=== PATIENT | female | born 1945 | race Caucasian/White ===

== ENCOUNTER 2016-12-21 09:35 | Outpatient (CLI) | payer MEDICARE, OTHER | END 2016-12-21 09:36 | disposition home or self-care (01) | DX: E78.5 Hyperlipidemia, unspecified (principal) ==

== ENCOUNTER 2017-03-11 06:40 | Outpatient (CLI) | payer MEDICARE, OTHER | END 2017-03-11 06:41 | disposition home or self-care (01) | DX: L97.909 Non-pressure chronic ulcer of unspecified part of unspecified lower leg with unspecified severity (principal) ==

== ENCOUNTER 2017-05-20 11:08 | Outpatient (CLI) | payer MEDICARE, OTHER ==
[2017-05-20 19:17] LABS: BILIRUBIN,URINE NEGATIVE (NEGATIVE)
[2017-05-20 19:48] LABS: UR CULTURE IF IND NOT INDICATED; WBC,URINE 0-3 /HPF (0-5)
== END 2017-05-20 23:59 | disposition home or self-care (01) ==
LOC: LAB.WCP 11:08
PROVIDERS: ATTEND Family Medicine
DX: R39.15 Urgency of urination (principal)
CPT/HCPCS: 81001; 87086

== ENCOUNTER 2017-06-18 14:28 | Outpatient (CLI) | payer MEDICARE, OTHER | END 2017-06-18 14:29 | disposition home or self-care (01) | LOC: LAB.R 14:28 | PROVIDERS: ATTEND Physician Assistant Medical | DX: N39.0 Urinary tract infection, site not specified (principal) | CPT/HCPCS: 87077; 87086 ==

== ENCOUNTER 2017-07-02 16:00 | Outpatient (CLI) | payer MEDICARE, OTHER ==
[2017-07-02 19:22] LABS: BILIRUBIN,URINE NEGATIVE (NEGATIVE)
[2017-07-02 19:49] LABS: WBC,URINE 0-3 /HPF (0-5)
== END 2017-07-02 16:01 | disposition home or self-care (01) ==
LOC: LAB.R 16:00
PROVIDERS: ATTEND Family Medicine
DX: N39.0 Urinary tract infection, site not specified (principal)
CPT/HCPCS: 81001; 87086

== ENCOUNTER 2017-07-24 13:22 | Outpatient (CLI) | payer MEDICARE, OTHER ==
--- NOTE | 2017-07-24 16:43 | Ultrasound Report ---
RIGHT BREAST ULTRASOUND: 07/24/2017 CLINICAL INDICATION: Palpable abnormality on clinical examination. TECHNIQUE: Real-time scanning was performed with sales representative raw fibers static images obtained. FINDINGS: Ultrasound of the right lower outer quadrant was performed, directed to the region indicat ed on the requisition. Unremarkable parenchymal lobules are seen. No discrete solid or cystic mass is identified. No sonogra phically suspicious findings are appreciated. IMPRESSION: NEGATIVE EXAMINATION. RECOMMENDATION: ROUTINE ANNUAL SCREENING UNLESS OTHERWISE CLINICALLY INDICATED. BIRADS CATEGORY 1-NEGATIVE. JOB #: [id number] EXT JOB #:[id number]
--- NOTE | 2017-07-24 16:48 | Mammography Report ---
DIGITAL DIAGNOSTIC BILATERAL MAMMOGRAM: 07/24/2017 CLINICAL INDICATION: Palpable abnormality right lower inner quadrant on clinical examination, history of benign biopsies, family history of breast cancer. TECHNIQUE: Bilateral CC and MLO views, right true lateral view. Bilateral laterally exaggerated crani ocaudal views. COMPARISON: 11/23/2015, 10/22/2014, 09/14/2013, 03/24/2012, 03/05/2011, 09/25/2010, 02/08/2010, 02/01. FINDINGS: The breasts again demonstrate heterogeneously dense fibroglandular parenchyma bilaterally. Postoperative and postbiopsy changes are stable. Coarse and punctate, typically benign calcification s are present. No suspicious masses, clustered microcalcifications, or regions of architectural disto rtion are identified. Specifically, no mammographic abnormality is appreciated in the right lower inn er quadrant, in the region indicated on the requisition. Please also refer to right breast ultrasound of the same day. IMPRESSION: BENIGN FINDINGS. RECOMMENDATION: ROUTINE ANNUAL SCREENING UNLESS OTHERWISE CLINICALLY INDICATED. BIRADS CATEGORY 2-BENIGN FINDINGS. STANDARD QUALIFYING STATEMENTS 1. This examination was reviewed with the aid of Computer-Aided Detection (CAD). 2. A negative or benign imaging report should not delay biopsy if clinically suspicious findings are present. Consider surgical consultation if warranted. More than 5% of cancers are not identified by i maging. 3. Dense breasts may obscure an underlying neoplasm. JOB #: [id number] EXT JOB #:[id number]
== END 2017-07-24 13:23 | disposition home or self-care (01) ==
LOC: DI 13:22
PROVIDERS: ATTEND Family Medicine
DX: N63 Unspecified lump in breast (principal); Z80.3 Family history of malignant neoplasm of breast
CPT/HCPCS: 76642; G0204; 77066

== ENCOUNTER 2017-07-25 15:43 | Outpatient (CLI) | payer MEDICARE, OTHER ==
[2017-07-25 16:08] LABS: BASOPHILS # (AUTO) 0.2 10^3/uL (0.0-0.1); BASOPHILS % (AUTO) 2.5 %; EOSINOPHILS # (AUTO) 0.1 10^3/uL (0.0-0.7); EOSINOPHILS % (AUTO) 1.4 %; HCT - HEMATOCRIT 30.2 % (37.0-47.0); HGB - HEMOGLOBIN 9.5 g/dL (12.0-16.0); LYMPHOCYTES # (AUTO) 0.9 10^3/uL (1.5-3.5); LYMPHOCYTES % (AUTO) 12.9 %; MEAN CORPUSCULAR HEMOGLOBIN 23.9 pg (27.0-31.0); MEAN CORPUSCULAR HGB CONC 31.4 g/dL (32.0-36.0); MEAN CORPUSCULAR VOLUME 75.9 fL (81.0-99.0); MEAN PLATELET VOLUME 7.1 fL (7.9-10.8); MONOCYTES # (AUTO) 0.8 10^3/uL (0.0-1.0); MONOCYTES % (AUTO) 11.9 %; NEUTROPHILS # (AUTO) 4.7 10^3/uL (1.5-6.6); NEUTROPHILS % (AUTO) 71.3 %; RED BLOOD COUNT 3.98 10^6/uL (4.20-5.40); RED CELL DISTRIBUTION WIDTH 20.9 % (12.0-15.0); UNCORRECTED WHITE BLOOD COUNT 6.6 x10^3/uL; WHITE BLOOD COUNT 6.6 x10^3/uL (4.8-10.8)
[2017-07-25 16:27] LABS: PLATELET ESTIMATE, MANUAL NORMAL (130-450,000) (NORMAL); PLATELET MORPHOLOGY NORMAL APPEARANCE (NORMAL)
== END 2017-07-25 15:44 | disposition home or self-care (01) ==
LOC: LAB 15:43
PROVIDERS: ATTEND Family Medicine
DX: D64.9 Anemia, unspecified (principal)
CPT/HCPCS: 36415; 85025

== ENCOUNTER 2017-09-13 07:28 | Outpatient (CLI) | payer MEDICARE, OTHER | END 2017-09-13 07:29 | disposition critical access hospital (66) | LOC: EMS 07:28 | PROVIDERS: ATTEND Surgery | DX: S09.90XA Unspecified injury of head, initial encounter (principal); R06.02 Shortness of breath; M54.2 Cervicalgia; M54.9 Dorsalgia, unspecified; W18.30XA Fall on same level, unspecified, initial encounter; Y92.000 Kitchen of unspecified non-institutional (private) residence as the place of occurrence of the external cause ==

== ENCOUNTER 2017-09-13 07:51 | Emergency (ER) | payer MEDICARE, OTHER ==
[2017-09-13] MEDS ORDERED: ACETAMINOPHEN 1,000 MG/100 ML 100 ML IV STA (08:00)
--- NOTE | 2017-09-13 08:03 | ED Physician Documentation ---
History of Present Illness - Stated complaint Stated Complaint: GLF, RIGHT SIDE PAIN - Chief complaint Chief Complaint: Neuro - Additonal information Additional information: hx from pt and EMS 72 f numerous medical problems including PPM CHF and recent acute blood loss anemia req transfusion - pt states source unknown this Am she fell in kitchen and had LOC unknown of fell first then LOC 2/2 HI or had syncope and then fell complains of headache and back pain denies CP AP ext pain no blood thinners no recent fever cough NVD urinary sx Review of Systems Constitutional: denies: Fever Eyes: denies: Loss of vision Ears: denies: Ear pain, Drainage/discharge Nose: denies: Epistaxis Cardiac: denies: Chest pain / pressure, Palpitations Respiratory: denies: Dyspnea GI: denies: Abdominal Pain, Nausea, Vomiting : denies: Dysuria Skin: reports: Other (large hematoma to R scientologist) Musculoskeletal: denies: Neck pain (but given age mechanism and other spine pain cannot clear and will image) Neurologic: reports: Syncope, Headache, Head injury. denies: Focal weakness, Numbness Endocrine: denies: Easy bruising / bleeding Immunocompromised: denies: Immunocompromised PD PAST MEDICAL HISTORY - Past Medical History Cardiovascular: Congestive heart failure, Hypertension, High cholesterol, Atrial flutter Neuro: Other : Other HEENT: Glaucoma Psych: Anxiety Musculoskeletal: Osteopenia, Other - Past Surgical History Cardiovascular: Pacemaker - Present Medications Home Medications: Ambulatory Orders Medication Instructions Recorded Confirmed Glucosamine/D3/Boswellia Katerina 1 each PO DAILY 07/27/16 09/13/17 [Glucosamine Daily Complex Tab] Metoprolol Tartrate [Lopressor] 12.5 mg PO DAILY 07/27/16 09/13/17 Triamterene [Dyrenium] 75 mg PO DAILY 07/27/16 09/13/17 Zolpidem [Ambien] 10 mg PO HS PRN 07/27/16 09/13/17 Furosemide 1 tab ORAL DAILY PRN 07/05/17 09/13/17 Aspirin Chewable [St [place]elmo 81 mg PO DAILY 09/13/17 09/13/17 Aspirin] Mirtazapine 20 mg PO DAILY 09/13/17 09/13/17 Omeprazole 20 mg PO DAILY 09/13/17 09/13/17 - Allergies Allergies/Adverse Reactions: Allergies Allergy/AdvReac Type Severity Reaction Status Date / Time atorvastatin Allergy Severe weakness Verified 09/13/17 08:20 muscular tetracycline Allergy Severe Hives Verified 09/13/17 08:20 JASON Inhibitors Allergy Intermediate Dizziness Verified 09/13/17 08:20 latex Allergy Itching Verified 09/13/17 08:20 - Social History Smoking Status: Never smoker PD ED PE NORMAL - Vitals Vital signs reviewed: Yes - General General: Alert and oriented X 3 - HEENT HEENT: PERRL. No: Atraumatic (large hematoma to R scientologist) - Neck Neck: No bony TTP (will image 2/2 mechansim) - Cardiac Cardiac: RRR - Respiratory Respiratory: No respiratory distress, Clear bilaterally - Abdomen Abdomen: Soft, Non tender - Back Back: No: No spinal TTP (upper L and R SI region TTP) - Extremities Extremities: No deformity, No tenderness to palpate, Other (pelvis stable NT) - Neuro Neuro: Alert and oriented X 3, No motor deficit, No sensory deficit Results - Vitals Vitals: Vital Signs - 24 hr 09/13/17 09/13/17 07:51 09:50 Temperature 36.1 C L 36.2 C L Heart Rate 80 86 Respiratory 18 18 Rate Blood Pressure 160/78 H 143/66 H O2 Saturation 93 95 Oxygen O2 Source Nasal cannula Oxygen Flow Rate 2 - EKG (time done) 0902 Rate: Rate (enter#) (80) Compare to prior EKG: Other (paced) - Labs Labs: Laboratory Tests 09/13/17 09/13/17 09/13/17 08:11 08:11 08:11 WBC 7.8 RBC 3.85 L Hgb 10.3 L Hct 32.0 L MCV 83.0 MCH 26.8 L MCHC 32.2 RDW 26.7 H Plt Count 229 MPV 7.9 Neut # 6.3 Lymph # 0.6 L Kimble # 0.7 Eos # 0.1 Baso # 0.1 Absolute Nucleated RBC 0.00 Nucleated RBC % 0.0 Sodium 132 L Potassium 2.7 L Chloride 92 L Carbon Dioxide 25 Anion Gap 15.0 H BUN 26 H Creatinine 1.2 H Estimated GFR (MDRD) 44 L Glucose 113 H Calcium 8.9 Troponin I < 0.04 - Rads (name of study) CTH Radiology: See rad report (small subdural L ant lobe along falx, R and trace left SAH, T scientologist hematoma, no fx) CT CS Radiology: See rad report (no fx) CXR Radiology: See rad report (PPM no acute) L spine Radiology: See rad report (mild degen changes) pelvis Radiology: See rad report (no acute ) PD MEDICAL DECISION MAKING - ED course ED course: sabillon with LOC vs syncope then fall has SDH and SAH in CT will transfer to [facility] given small bleed and nl neuro right now and poor weather feel safer and more prudent to transfer stat ground pt family updated Departure - Departure Disposition: 02 Transfer Acute Care Hosp Clinical Impression: Subdural bleeding, Subarachnoid bleed, Hypokalemia Fall Qualifiers: Encounter type: initial encounter Qualified Code(s): W19.XXXA - Unspecified fall, initial encounter Condition: Serious Discharge Date/Time: 09/13/17 10:15
[2017-09-13 08:27] LABS: CALCIUM 8.9 mg/dL (8.5-10.3); CREATININE 1.2 mg/dL (0.4-1.0); POTASSIUM 2.7 mmol/L (3.5-5.0)
[2017-09-13 08:28] LABS: BASOPHILS # (AUTO) 0.1 10^3/uL (0.0-0.1); BASOPHILS % (AUTO) 1.5 %; EOSINOPHILS # (AUTO) 0.1 10^3/uL (0.0-0.7); EOSINOPHILS % (AUTO) 1.4 %; HGB - HEMOGLOBIN 10.3 g/dL (12.0-16.0); LYMPHOCYTES # (AUTO) 0.6 10^3/uL (1.5-3.5); LYMPHOCYTES % (AUTO) 7.6 %; MEAN CORPUSCULAR HEMOGLOBIN 26.8 pg (27.0-31.0); MEAN CORPUSCULAR HGB CONC 32.2 g/dL (32.0-36.0); MEAN PLATELET VOLUME 7.9 fL (7.9-10.8); MONOCYTES # (AUTO) 0.7 10^3/uL (0.0-1.0); MONOCYTES % (AUTO) 9.3 %; NEUTROPHILS # (AUTO) 6.3 10^3/uL (1.5-6.6); NEUTROPHILS % (AUTO) 80.2 %; RED BLOOD COUNT 3.85 10^6/uL (4.20-5.40); RED CELL DISTRIBUTION WIDTH 26.7 % (12.0-15.0); UNCORRECTED WHITE BLOOD COUNT 7.8 x10^3/uL; WHITE BLOOD COUNT 7.8 x10^3/uL (4.8-10.8)
[2017-09-13] MEDS ORDERED: ACETAMINOPHEN 1,000 MG/100 ML 100 ML IV ONE (09:00)
[2017-09-13] MEDS ORDERED: SODIUM CHLORIDE FLUSH 0.9% 10 ML SYRINGE IVP ONE (09:01)
[2017-09-13] MEDS ORDERED: POTASSIUM CHLOR 10 MEQ/100 ML 10 MEQ/100 ML BAG IV ONE ×2 (09:02→09:30)
--- NOTE | 2017-09-13 09:07 | CT Report ---
EXAM: CT HEAD EXAM DATE: 09/13/2017 08:42 AM. CLINICAL HISTORY: Fall R with anglican hematoma. COMPARISON: None. TECHNIQUE: Multiaxial CT images were obtained from the foramen magnum to the vertex. IV contrast: Non e. Reformats: Coronal. In accordance with CT protocol optimization, one or more of the following dose reduction techniques w ere utilized for this exam: automated exposure control, adjustment of mA and/or KV based on patient s ize, or use of iterative reconstructive technique. FINDINGS: Parenchyma: No intraparenchymal hemorrhage. No evidence of mass, midline shift, or CT findings of inf arction. Hall-white differentiation is distinct. Extraaxial Spaces: small, focal subdural hematoma along left frontal lobe, adjacent to anterior falx measuring up to 5 mm in depth. Right quadrigeminal plate subarachnoid hemorrhage. Trace left temporal subarachnoid hemorrhage. Ventricles: Normal in size and position. Sinuses and orbits: Imaged paranasal sinuses, orbits, and mastoids show no significant abnormality. Bones: No evidence of fracture or calvarial defect. Other: Large right lateral supraorbital soft tissue hematoma. IMPRESSION: 1. Small, focal subdural hematoma along left frontal lobe, adjacent to anterior falx measuring up to 5 mm in depth. 2. Right quadrigeminal plate and trace left temporal subarachnoid hemorrhage. 3. Large right lateral supraorbital soft tissue hematoma. 4. No fracture evident. [facility] The above critical findings were discussed with Dr. Walden by Dr. Christopher Teague at 09:03 hrs on . Referring Provider Line: [phone] SITE ID: [id number]
--- NOTE | 2017-09-13 09:08 | CT Preliminary Report ---
Exam: CT CERVICAL SPINE W/O IMPRESSION: 1. No cervical spine fracture. 2. Mild degenerative changes. [facility] SITE ID: [id number]
--- NOTE | 2017-09-13 09:12 | XRAY Preliminary Report ---
Exam: XR CHEST 1 VIEW IMPRESSION: Negative portable chest. Pacemaker appears [facility] 10/30/2016. [id number]
--- NOTE | 2017-09-13 09:12 | CT Report ---
EXAM: CT CERVICAL SPINE WITHOUT CONTRAST DATE: 09/13/2017 08:42 AM HISTORY: Fall with head injury and right temporal hematoma. COMPARISONS: None. TECHNIQUE: Thin-section axial images were acquired of the cervical spine without contrast. Post-proce ssing: Coronal and sagittal reformats. Other: None. In accordance with CT protocol optimization, one or more of the following dose reduction techniques w ere utilized for this exam: automated exposure control, adjustment of mA and/or KV based on patient s ize, or use of iterative reconstructive technique. FINDINGS: Alignment: Normal. No scoliosis or spondylolisthesis. Bones: No fracture or bone lesion. Interspace Levels/Facets: C1-C2: Degenerative changes with joint space narrowing and marginal osteophytes. C2-C3: Unremarkable. C3-C4: Unremarkable. C4-C5: Unremarkable. C5-C6: Mild bilateral uncovertebral joint hypertrophy. Degenerative endplate changes. C6-C7: Mild right uncovertebral joint hypertrophy. C7-T1: Unremarkable. Musculature: Normal. No fatty atrophy. Other: The paravertebral and prevertebral soft tissues are normal. The lung apices are clear. Atheros clerotic arterial calcifications. IMPRESSION: 1. No cervical spine fracture. 2. Mild degenerative changes. [facility] Referring Provider Line: [phone] SITE ID: [id number]
--- NOTE | 2017-09-13 09:13 | XRAY Preliminary Report ---
Exam: XR PELVIS 1 VIEW IMPRESSION: Grossly negative pelvis radiography. If there is a high clinical suspicion for fracture s uggest noncontrast CT. [facility] SITE ID: [id number]
--- NOTE | 2017-09-13 09:14 | XRAY Report ---
EXAM: CHEST RADIOGRAPHY EXAM DATE: 09/13/2017 08:50 AM. CLINICAL HISTORY: Fall syncope weak, PPM check wires. COMPARISON: 10/30/2016 TECHNIQUE: 1 view. FINDINGS: Detail obscured by underlying backboard Lungs/Pleura: No focal opacities evident. No pleural effusion. No pneumothorax. Mediastinum: Within exam limitations, the cardiomediastinal contour is normal. Other: Single lead left subclavian transvenous pacemaker similar in alignment compared to the prior s tudy. No dehiscent set appreciated. IMPRESSION: Negative portable chest. Pacemaker appears similar to 10/30/2016. [facility] Referring Provider Line: [phone] SITE ID: [id number]
--- NOTE | 2017-09-13 09:16 | XRAY Report ---
EXAM: PELVIS RADIOGRAPHY EXAM DATE: 09/13/2017 08:50 AM. CLINICAL HISTORY: Fall R SI jt region pain. COMPARISON: None. TECHNIQUE: 1 view. FINDINGS: Bones: no gross fracture or bone lesion. Joints: The hip, pubis symphysis, and sacroiliac joints are anatomically aligned. Mild scattered deg enerative changes are present. Soft Tissues: Obscured by underlying backboard. IMPRESSION: Grossly negative pelvis radiography. If there is a high clinical suspicion for fracture s uggest noncontrast CT. [facility] Referring Provider Line: [phone] SITE ID: [id number]
--- NOTE | 2017-09-13 09:16 | XRAY Preliminary Report ---
Exam: XR LUMBAR SPINE 2 VIEW IMPRESSION: Mild degenerative change two-view lumbar spine radiography. No definite acute findings. H ow ever if the clinical suspicion for acute injury is high consider CT or MRI. [facility] SITE ID: [id number]
--- NOTE | 2017-09-13 09:18 | XRAY Report ---
EXAM: LUMBOSACRAL SPINE RADIOGRAPHY EXAM DATE: 09/13/2017 08:50 AM. CLINICAL HISTORY: Fall L spine pain. COMPARISONS: None. TECHNIQUE: 2 views. FINDINGS: Alignment: no spondylolisthesis or scoliosis. Bones: Five fwd-gso-brobpys lumbar vertebral bodies are present. No fractures or bone lesions. Disks: Minor degenerative change most marked L4-L5. Facets: Scattered degenerative changes. Sacroiliac Joints: Mild degenerative change. IMPRESSION: Mild degenerative change two-view lumbar spine radiography. No definite acute findings. H ow ever if the clinical suspicion for acute injury is high consider CT or MRI. [facility] Referring Provider Line: [phone] SITE ID: [id number]
[2017-09-13] MEDS ORDERED: MORPHINE 2 MG/ML SYRINGE IVP STA (09:23)
[2017-09-13] MEDS ORDERED: ONDANSETRON 4 MG/2 ML VIAL IVP STA (09:23)
[2017-09-13] MEDS ORDERED: SODIUM CHLORIDE 0.9% 1,000 ML IV ONE (09:23)
[2017-09-13] MEDS ORDERED: MORPHINE 2 MG/ML SYRINGE ONE (09:30)
[2017-09-13] MEDS ORDERED: ONDANSETRON 4 MG/2 ML VIAL ONE (09:30)
[2017-09-13 09:51] VITALS: BP 143/66
== END 2017-09-13 10:15 | disposition short-term general hospital (02) ==
LOC: EDUNIT# → ED 07:51
DX: S06.5X9A Traumatic subdural hemorrhage with loss of consciousness of unspecified duration, initial encounter (principal); S06.6X9A Traumatic subarachnoid hemorrhage with loss of consciousness of unspecified duration, initial encounter; W18.39XA Other fall on same level, initial encounter; Y92.010 Kitchen of single-family (private) house as the place of occurrence of the external cause; I11.0 Hypertensive heart disease with heart failure; I50.9 Heart failure, unspecified; I48.91 Unspecified atrial fibrillation; R94.31 Abnormal electrocardiogram [ECG] [EKG]; D50.0 Iron deficiency anemia secondary to blood loss (chronic); E78.00 Pure hypercholesterolemia, unspecified; Z79.82 Long term (current) use of aspirin
CPT/HCPCS: 36415; 70450; 71010; 72100; 72125; 72170; 80048; 84484; 85025; 93005; 96374; 96375; 99284; 99285; J0131; J2270

== ENCOUNTER 2017-09-13 10:15 | Outpatient (CLI) | payer MEDICARE, OTHER | END 2017-09-13 10:16 | disposition short-term general hospital (02) | LOC: EMS 10:15 | PROVIDERS: ATTEND Surgery | DX: S06.5X9A Traumatic subdural hemorrhage with loss of consciousness of unspecified duration, initial encounter (principal); S06.6X9A Traumatic subarachnoid hemorrhage with loss of consciousness of unspecified duration, initial encounter; W18.30XA Fall on same level, unspecified, initial encounter; Y92.000 Kitchen of unspecified non-institutional (private) residence as the place of occurrence of the external cause ==